=== PATIENT | female | born 1975 | race Caucasian/White ===

== ENCOUNTER → 2017-12-07 | Outpatient (REF) | payer SELFPAY | LOC: M LAB REF 10:38 | DX: N39.0 Urinary tract infection, site not specified (principal) | CPT/HCPCS: 87186 ==

== ENCOUNTER → 2018-07-30 | Outpatient (REF) | payer OTHER | LOC: M LAB REF 16:16 | DX: R30.0 Dysuria (principal) | CPT/HCPCS: 87086 ==

== ENCOUNTER → 2022-02-10 | Outpatient (REF) | payer OTHER ==
[2022-02-10 13:00] LABS: APPEARANCE, URINE CLOUDY (CLEAR); BACTERIA, URINE AUTO NEGATIVE (NEGATIVE); BILIRUBIN, URINE AUTO NEGATIVE (NEGATIVE); BLOOD, URINE BLOOD 1+ (NEGATIVE); COLOR, URINE YELLOW (YELLOW); GLUCOSE, URINE (UA) AUTO NEGATIVE (NEGATIVE); KETONE, URINE AUTO NEGATIVE (NEGATIVE); LEUKOCYTE ESTERASE, URINE AUTO NEGATIVE (NEGATIVE); MUCUS, URINE SMALL (NEGATIVE); NITRITE, URINE AUTO NEGATIVE (NEGATIVE); PROTEIN, URINE AUTO NEGATIVE (NEGATIVE); RBC, URINE AUTO 0 /HPF (0-3); SPECIFIC GRAVITY URINE AUTO 1.023 (1.002-1.035); SQUAMOUS EPITHELIAL CELL UR AU 18 /HPF (0-6); UROBILINOGEN, URINE AUTO 0.2 mg/dL (0.0-2.0); WBC, URINE AUTO 2 /HPF (0-3)
== END ==
LOC: M LAB REF 12:19
PROVIDERS: ATTEND Physician Assistant Medical
DX: R30.0 Dysuria (principal)

== ENCOUNTER → 2022-05-14 | Outpatient (CLI) | payer OTHER ==
[~2022-05-14] MED LIST: ACET-716 PO
== END ==
LOC: M LABSMTC 09:43
PROVIDERS: ATTEND Anesthesiology
DX: Z01.812 Encounter for preprocedural laboratory examination (principal); Z20.822 Contact with and (suspected) exposure to COVID-19

== ENCOUNTER 2022-05-17 09:06 | Day surgery (SDC) | payer OTHER ==
[~2022-05-17] VITALS: Ht 154.9 cm; Wt 85.6 kg
[~2022-05-17 09:06] MED LIST changes: -ACET-716 PO; +LIDOCAINE 2% INJ 100 MG/5 ML SYRINGE As Ordered ONE; +MIDAZOLAM INJ 2MG/2ML VIAL (J2250 PER 1MG) As Ordered ONE; +ONDANSETRON 4MG 2ML VIAL As Ordered ONE; +dexameTHASONE 4 MG/ML 1ML VIAL (J1100 PER 1MG) As Ordered ONE; +fentaNYL 100 MCG/2 ML INJECTION As Ordered ONE; +propofoL 200 MG/20 ML VIAL As Ordered ONE
[2022-05-17] MEDS ORDERED: LR 1,000 ML IV SCH ×2 (09:55→13:20)
[2022-05-17] MEDS ORDERED: CLINDAMYCIN 900 MG in IV 1 EA IV ONE (09:55)
[2022-05-17] MEDS ORDERED: ACET-716 PO (10:23)
[2022-05-17] MEDS ORDERED: SCOPOLAMINE 1MG TRANSDERMAL PATCH As Ordered ONE ×2 (10:31→11:14)
[2022-05-17] MEDS ORDERED: BACITRACIN OINTMENT 30GM TUBE As Ordered ONE (11:03)
[2022-05-17] MEDS ORDERED: BUPIVACAINE HCL 0.25% 30ML VIAL As Ordered ONE (11:03)
[2022-05-17] MEDS ORDERED: SCOPOLAMINE 1MG TRANSDERMAL PATCH TOP ONE (11:10)
[2022-05-17] MEDS ORDERED: ALBUTEROL SULFATE 2.5 MG/0.5 ML INH NEB SOLN INH PRN (13:20)
[2022-05-17] MEDS ORDERED: METOCLOPRAMIDE INJ 10MG/2ML VIAL (J2765 PER 1) IV PRN (13:20)
[2022-05-17] MEDS ORDERED: ONDANSETRON 4MG 2ML VIAL IV PRN (13:20)
[2022-05-17] MEDS ORDERED: MEPERIDINE INJ 25 MG/ML VIAL (J2175) IV PRN (13:20)
[2022-05-17] MEDS ORDERED: HYDROMORPHONE HCL 0.5 MG/ 0.5 ML SYRINGE (J1170 PER 1) IV PRN (13:20)
[2022-05-17] MEDS ORDERED: fentaNYL 100 MCG/2 ML INJECTION IV PRN (13:20)
[2022-05-17] MEDS: oxyCODONE 5MG TAB PO PRN ×2 (14:12→15:04)
[2022-05-17 15:34] VITALS: BP 105/68
== END 2022-05-17 16:01 | disposition home or self-care (01) ==
LOC: M SDC 09:06
PROVIDERS: ATTEND Orthopaedic Surgery Hand Surgery
DX: S62.323A Displaced fracture of shaft of third metacarpal bone, left hand, initial encounter for closed fracture (principal); Z88.0 Allergy status to penicillin
CPT/HCPCS: 26615; 76000; 81025; C1713; J1100; J2250; J2405; J3010

== ENCOUNTER → 2022-05-26 | Outpatient (CLI) | payer OTHER ==
[~2022-05-26] MED LIST changes: +ACET-716 PO; -LIDOCAINE 2% INJ 100 MG/5 ML SYRINGE As Ordered ONE; -MIDAZOLAM INJ 2MG/2ML VIAL (J2250 PER 1MG) As Ordered ONE; -ONDANSETRON 4MG 2ML VIAL As Ordered ONE; -dexameTHASONE 4 MG/ML 1ML VIAL (J1100 PER 1MG) As Ordered ONE; -fentaNYL 100 MCG/2 ML INJECTION As Ordered ONE; -propofoL 200 MG/20 ML VIAL As Ordered ONE
== END ==
LOC: M SOG 08:13
PROVIDERS: ATTEND Orthopaedic Surgery Hand Surgery
DX: Z48.89 Encounter for other specified surgical aftercare (principal)

== ENCOUNTER → 2022-06-30 | Outpatient (CLI) | payer OTHER | LOC: M SOG 08:05 | PROVIDERS: ATTEND Orthopaedic Surgery Hand Surgery | DX: S62.303D Unspecified fracture of third metacarpal bone, left hand, subsequent encounter for fracture with routine healing (principal) ==

== ENCOUNTER 2025-09-04 07:37 | Day surgery (SDC) | payer OTHER ==
[~2025-09-04] VITALS: Ht 154.9 cm; Wt 80.8 kg
[~2025-09-04 07:37] MED LIST changes: +ACETAMINOPHEN 1000MG/100ML IV BAG As Ordered ONE; +KETOROLAC 30 MG/ML 1 ML VIAL As Ordered ONE; +LIDOCAINE 2% 100 MG/5 ML SDV (FOR ANES.) As Ordered ONE; +MELO15TA28 PO; +ONDANSETRON 4MG/2ML VIAL As Ordered ONE; +dexAMETHasone 4 MG/ML 1 ML VIAL As Ordered ONE
[2025-09-04] MEDS ORDERED: MIDAZOLAM INJ 2 MG/2 ML VIAL As Ordered ONE (08:16)
[2025-09-04] MEDS ORDERED: LR 1,000 ML IV SCH ×2 (08:25→11:05)
[2025-09-04] MEDS ORDERED: SCOPOLAMINE 1MG TRANSDERMAL PATCH TOP ONE (08:45)
[2025-09-04] MEDS ORDERED: HYDROMORPHONE HCL 0.5 MG/0.5 ML SYRINGE IV PRN (11:05)
[2025-09-04] MEDS ORDERED: ONDANSETRON 4MG/2ML VIAL IV PRN (11:05)
[2025-09-04 12:16] VITALS: BP 131/78; TEMP 97.5; O2SAT 98
== END 2025-09-04 12:34 | disposition home or self-care (01) ==
LOC: M SDC 07:37
PROVIDERS: ATTEND Orthopaedic Surgery Hand Surgery
DX: G56.01 Carpal tunnel syndrome, right upper limb (principal); Z79.1 Long term (current) use of non-steroidal anti-inflammatories (NSAID); Z88.0 Allergy status to penicillin
CPT/HCPCS: 29848; 81025; J0131; J0665; J1100; J1885; J2250; J2405; J3010

== ENCOUNTER 2025-09-21 09:08 | Day surgery (SDC) | payer OTHER ==
[~2025-09-21] VITALS: Ht 154.9 cm; Wt 80.3 kg
[~2025-09-21 09:08] MED LIST changes: -ACETAMINOPHEN 1000MG/100ML IV BAG As Ordered ONE; +AZEL1SPR3; +IBUP-354 PO; -KETOROLAC 30 MG/ML 1 ML VIAL As Ordered ONE; -LIDOCAINE 2% 100 MG/5 ML SDV (FOR ANES.) As Ordered ONE; -ONDANSETRON 4MG/2ML VIAL As Ordered ONE; -dexAMETHasone 4 MG/ML 1 ML VIAL As Ordered ONE
[2025-09-21] MEDS ORDERED: KETOROLAC 30 MG/ML 1 ML VIAL As Ordered ONE (09:34)
[2025-09-21] MEDS ORDERED: ACETAMINOPHEN 1000MG/100ML IV BAG As Ordered ONE (09:34)
[2025-09-21] MEDS ORDERED: dexAMETHasone 4 MG/ML 1 ML VIAL As Ordered ONE (09:34)
[2025-09-21] MEDS ORDERED: LIDOCAINE 2% 100 MG/5 ML SDV (FOR ANES.) As Ordered ONE (09:34)
[2025-09-21] MEDS ORDERED: MIDAZOLAM INJ 2 MG/2 ML VIAL As Ordered ONE (09:34)
[2025-09-21] MEDS ORDERED: ONDANSETRON 4MG/2ML VIAL As Ordered ONE (09:34)
[2025-09-21] MEDS: LR 1,000 ML IV SCH (09:47)
[2025-09-21] MEDS: SCOPOLAMINE 1MG TRANSDERMAL PATCH As Ordered ONE (10:22)
[2025-09-21] MEDS: POLYSPORIN TOPICAL OINTMENT 15GM As Ordered ONE (10:29)
[2025-09-21] MEDS: SCOPOLAMINE 1MG TRANSDERMAL PATCH TOP ONE (10:30)
[2025-09-21] MEDS: LIDOCAINE W/EPINEPHrine 1% 20 ML VIAL As Ordered ONE (10:30)
[2025-09-21] MEDS ORDERED: LR 1,000 ML IV SCH (10:50)
[2025-09-21] MEDS ORDERED: HYDROMORPHONE HCL 0.5 MG/0.5 ML SYRINGE IV PRN (10:50)
[2025-09-21] MEDS ORDERED: ONDANSETRON 4MG/2ML VIAL IV PRN (10:50)
[2025-09-21 11:49] VITALS: BP 121/70; TEMP 97.2; O2SAT 97
== END 2025-09-21 12:01 | disposition home or self-care (01) ==
LOC: M SDC 09:08
PROVIDERS: ATTEND Orthopaedic Surgery Hand Surgery
DX: G56.02 Carpal tunnel syndrome, left upper limb (principal); Z88.0 Allergy status to penicillin
CPT/HCPCS: 29848; 81025; J0131; J1100; J1885; J2250; J2405; J2765; J3010

== ENCOUNTER → 2025-10-16 | Outpatient (CLI) | payer OTHER ==
[2025-10-16 14:06] LABS: BASO # 0.0 10^3/uL (0.0-0.2); BASO % 0.2 % (0.0-1.0); EOS # 0.3 10^3/uL (0.0-0.5); EOS % 4.6 % (0.0-3.0); LYMPH # 1.5 10^3/uL (1.5-5.0); LYMPH % 24.8 % (24.0-44.0); MONO # 0.5 10^3/uL (0.0-0.8); MONO % 7.8 % (2.0-8.0); NEUTROPHILS # 3.8 10^3/uL (1.5-8.5); NEUTROPHILS % 62.3 % (36.0-66.0); PLATELET COUNT, AUTOMATED 370 10^3/uL (150-450)
[2025-10-16 14:28] LABS: ALT/SGPT 17 U/L (7.0-40); AST/SGOT 18 U/L (<34); C REACTIVE PROTEIN QUANTITATIV 3.61 MG/DL (<1.0); CALCIUM LEVEL 9.0 MG/DL (8.5-10.1); CARBON DIOXIDE LEVEL 31 MMOL/L (20-31); CHLORIDE LEVEL 100 MMOL/L (98-107); CREATININE FOR GFR 0.62 MG/DL (0.55-1.30); GLOMERULAR FILTRATION RATE > 90.0 (>58); POTASSIUM SERUM 4.2 MMOL/L (3.5-5.1); SODIUM LEVEL 140 MMOL/L (136-145)
[2025-10-16 14:45] LABS: RHEUMATOID FACTOR QUANT 192.8 IU/ML (<14)
[2025-10-19 20:12] LABS: ANA PATTERN 2 Nuclear, Speckled; ANA TITER 2 1:160 titer (NEGATIVE)
== END ==
LOC: M LAB 12:39
PROVIDERS: ATTEND Orthopaedic Surgery Hand Surgery
DX: M79.642 Pain in left hand (principal); M79.641 Pain in right hand; R23.8 Other skin changes